=== PATIENT | female | born 1985 | race Caucasian/White ===

== ENCOUNTER → 2023-12-18 16:53 | Outpatient (BNVA) | payer SELFPAY | PROVIDERS: PCP Internal Medicine; Visit Provider Emergency Medicine | DX: R09.81 Nasal congestion | CPT/HCPCS: 87400 ==

== ENCOUNTER 2024-03-18 11:56 | Emergency (ER) | payer SELFPAY ==
--- NOTE | 2024-03-18 11:59 | XRR_ITS ---
PROCEDURE INFORMATION: Exam: XR Chest Exam date and time: 03/18/2024 12:19 PM Age: 38 years old Clinical indication: Angina pectoris; Patient HX: Chest pain with lt arm pain TECHNIQUE: Imaging protocol: Radiologic exam of the chest. Views: 1 view. COMPARISON: CR XR chest 1V [id number] 12/28/2017 9:59 PM FINDINGS: Lungs: Calcified granuloma in right lower lung is similar to previous study. No consolidation. Pleural spaces: Unremarkable. No pleural effusion. No pneumothorax. Heart/Mediastinum: Unremarkable. No cardiomegaly. Bones/joints: Unremarkable. XR/XR chest 1V portable [id number] IMPRESSION: No acute findings.
[2024-03-18 12:00] VITALS: BP 130/82; PULSE 87; RESP 18; TEMP 36.5; O2SAT 98
--- NOTE | 2024-03-18 12:03 | ECG_ITS ---
[facility] Test Date: 2024-03-18 Pat Name: Becky Bentley Department: Room: Gender: Female Senior Financial Analyst: : 1985 Requested By: Claus Velarde Order Number: [id number] Bryson MD: Shantell Brown M.D. Measurements Intervals [place] Rate: 83 P: 39 VA: 184 QRS: 7 QRSD: 79 T: 27 QT: 363 QTc: 428 Interpretive Statements SINUS RHYTHM WITH MARKED SINUS ARRHYTHMIA LOW QRS VOLTAGE IN PRECORDIAL LEADS [QRS DEFLECTION < 1.0 mV IN CHEST LEADS] No previous ECG available for comparison Electronically Signed On 03-18-2024 20:27:05 CDT by Shantell Brown M.D. [id number]
--- NOTE | 2024-03-18 12:05 | PC.NURSE ---
Pt on bedside cardiac rehabilitation specialist
--- NOTE | 2024-03-18 12:09 | ED_ITS ---
HPI - Chest Pain 2 General: Chief Complaint: Chest Pain Stated Complaint: chest pressure, left shoulder pain Time Seen by Provider: 03/18/24 12:00 Source: patient Mode of arrival: ambulatory Limitations: no limitations History of Present Illness: Patient reports starting at 10:54 AM she started having a centralized chest pain that radiates to her left shoulder and neck and goes down her left arm. Comes in waves. Worse with breathing. No history of this before. No history of reflux. Does not smoke. No previous heart history. Takes no medications on a daily basis. Review of Systems 2 General: Reports: 10 or more systems reviewed and unremarkable except in HPI and below Physical Exam 2 Const: COMMON NORMALS: no acute distress, average body habitus, patient oriented x3, healthy appearing, alert and well nourished GENERAL APPEARANCE: well kempt and well developed NUTRITIONAL APPEARANCE: obese HENMT: COMMON NORMALS: normocephalic, atraumatic, external ears normal and moist oral mucous membranes HEAD & SCALP: normocephalic and atraumatic E XTERNAL EAR: Yes external ears normal Eye: COMMON NORMALS: Equal, round and reactive pupils present, EOMs intact bilaterally and conjunctivae normal CONJUNCTIVA: Yes conjunctivae normal P UPIL: Yes Equal, round and reactive pupils present Neck/C-Spine: COMMON NORMALS: full ROM, no lymphadenopathy and supple Chest: CHEST: Yes Symmetrical chest wall rise and Yes tenderness sternum Resp: COMMON NORMALS: normal respiratory effort, No retractions, No use of accessory muscles and clear to auscultation bilaterally AUSCULTATION: clear to auscultation bilaterally Cardio: COMMON NORMALS: regular rate, regular rhythm, S1 normal heart sound present, S2 normal heart sound present, No gallops present (Cardio), No clicks present (Cardio), No murmurs present (Cardio) and No rub (Cardio) JUGULAR VENOUS DISTENTION: no JVD RATE: regular rate RHYTHM: regular rhythm H EART SOUNDS: S1 normal heart sound present, S2 normal heart sound present and no murmurs PERIPHERAL PULSES: other (Radial pulses 2+ and symmetric) GI: COMMON NORMALS: Soft to palpation, non-tender and no masses INSPECTION: No abdominal distension PALPATION: Yes Soft to palpation, No Guarding due to palpation present (GI) and No Rebound tenderness present : COMMON NORMALS: Yes no CVA tenderness BLADDER/KIDNEY EXAM: Yes no CVA tenderness Back/Pelvis: COMMON NORMALS: no CVA tenderness Extremity: COMMON NORMALS: normal to inspection, full ROM, capillary refill normal and no clubbing, cyanosis or edema Neuro: COMMON NORMALS: patient oriented x3 SENSORIUM/ORIENTATION: Yes alert Psych: APPEARANCE: Yes well kempt Skin: COMMON NORMALS: no rashes or lesions noted, no wounds, turgor normal and no jaundice GENERAL SKIN EXAM: no rashes or lesions noted and turgor normal Course 2 Reevaluation(s): Reevaluation #1: Toradol has not helped. Okay with trying GI cocktail. Labs that have resulted are unremarkable. Having to redraw some. Vitals are stable. Time: 13:04 Reevaluation #2: much improved. ready for discharge Time: 14:40 Vital Signs: Vital signs: Vital Signs Temperature 97.7 F 03/18/24 12:00 Pulse Rate 69 03/18/24 14:34 Respiratory Rate 14 03/18/24 14:34 Blood Pressure 91/49 03/18/24 14:34 Pulse Oximetry 96 03/18/24 14:34 Oxygen Delivery Me thod Room Air 03/18/24 14:34 MDM - Chest Pain Medical Decision Making chest pain appears non-anginal. Trop negative. EKG negative. Wells score of 0.0. Toradol reportedly did not help the pain. Noted the GI cocktail. However she is to have sternal tenderness. Will do a trial of morphine. However patient's chest pain appears to be not anginal we will likely discharge her with anti- inflammatories and advised follow-up with primary care. Medical Records I reviewed the patient's medical records. Lab Data I reviewed the patient's lab results. 03/18/24 13:19 03/18/24 12:15 Radiology Impressions Chest X-Ray 03/18/24 11:59 IMPRESSION: No acute findings. Laboratory Results WBC 6.53 10^3/uL (3.29-11.43) 03/18/24 13:19 Corrected WBC Cancelled 03/18/24 12:15 RBC 4.51 10^6/uL (3.85-5.65) 03/18/24 13:19 Hgb 13.70 g/dL (11.27-16.99) 03/18/24 13:19 Hct 40.7 % (36-47) 03/18/24 13:19 MCV 90.2 fl (85-98) 03/18/24 13:19 MCH 30.4 pg (27-33) 03/18/24 13:19 MCHC 33.7 g/dL (30-55) 03/18/24 13:19 RDW 12.7 % (12.1-15.1) 03/18/24 13:19 Plt Count 238 10^3/cmm (157-399) 03/18/24 13:19 MPV 10.1 fL (7.4-10.4) 03/18/24 13:19 Gran % Cancelled 03/18/24 12:15 Neut % (Auto) 55.6 % 03/18/24 13:19 Lymph % (Auto) 34.3 % 03/18/24 13:19 [place] % (Auto) 8.7 % 03/18/24 13:19 Eos % (Auto) 0.8 % 03/18/24 13:19 Baso % (Auto) 0.3 % 03/18/24 13:19 Neut # (Auto) 3.63 10^3/uL (1.8-7.7) 03/18/24 13:19 Lymph # (Auto) 2.2 10^3/uL (0.8-4.8) 03/18/24 13:19 [place] # (Auto) 0.6 10^3/uL (0.2-0.9) 03/18/24 13:19 Eos # (Auto) 0.1 10^3/uL (0.0-0.8) 03/18/24 13:19 Baso # (Auto) 0.0 10^3/uL (0.0-0.1) 03/18/24 13:19 Absolute Gran (auto) Cancelled 03/18/24 12:15 Nucleated RBC % (auto) 0 % 03/18/24 13:19 Nucleated RBCs # 0.0 /100WBC 03/18/24 13:19 Sodium 139 mmol/L (136-145) 03/18/24 12:15 Potassium 4.4 mmol/L (3.5-5.1) 03/18/24 12:15 Chloride 105 mmol/L (98-107) 03/18/24 12:15 Carbon Dioxide 23 mmol/L (22-29) 03/18/24 12:15 Anion Gap 15.4 (5-19) 03/18/24 12:15 BUN 12 mg/dL (6-20) 03/18/24 12:15 Creatinine 0.6 mg/dL (0.5-0.9) 03/18/24 12:15 GFR Calculation 113.1 mL/min (90-130) 03/18/24 12:15 Glucose 104 mg/dL (65-115) 03/18/24 12:15 Calculated Osmolality 288 mOsm/kg (285-295) 03/18/24 12:15 Calcium 9.5 mg/dL (8.5-10.5) 03/18/24 12:15 Total Bilirubin 0.7 mg/dL (0.15-1.2) 03/18/24 12:15 AST 36 U/L (0-32) H 03/18/24 12:15 ALT 54 U/L (0-33) H 03/18/24 12:15 Alkaline Phosphatase 160 U/L (35-105) H 03/18/24 12:15 Troponin T Baseline < 6 ng/L (0-10) 03/18/24 12:15 Total Protein 7.4 g/dL (6.6-8.7) 03/18/24 12:15 Albumin 4.2 g/dL (3.5-5.2) 03/18/24 12:15 Globulin 3.2 g/dL (1.3-4.6) 03/18/24 12:15 Lipase 35 U/L (13-60) 03/18/24 12:15 All radiology interpretation(s) finalized by discharge ED provider radiology interpretation(s): Chest x-ray personally reviewed and I see no acute abnormality EKG Data EKG 1: I personally reviewed and interpreted this EKG as follows: EKG interpretation date: 03/18/24 EKG interpretation time: 12:03 Prior EKG tracings: not available for review Interpretation: Sinus rate of [address] elevation or depression. No signs of [place] or Q waves. Intervals are unremarkable/wnl Discharge Plan Discharge Patient Disposition: Home Clinical Impression: Acute pleurisy without pleural effusion, Costalchondritis Condition: Stable Prescriptions: New prednisone 20 mg tablet 40 mg PO DAILY 3 Days Qty: 6 0RF naproxen sodium [Anaprox DS] 550 mg tablet 550 mg PO BID 10 Days Qty: 20 0RF Discharge Orders: Discharge ED (Routine); Ordered 03/18/24 Ordered By: Geovanny Rojo Referrals: Pio Jones MD [Primary Care Provider] - Discharge Diet: Usual diet Discharge Activity: Resume usual activity Patient Instructions: Pleurisy (ED) Coding Level of Care Code ED Choir Teacher for Ciarra Hopson
[2024-03-18] MEDS: ketorolac 30 mg/mL INJ 15 MG IVP (12:32)
--- NOTE | 2024-03-18 12:32 | PC.PHAR ---
PT STATES TAKES NO MEDICATIONS CURRENTLY.
[2024-03-18 12:34] VITALS: BP 116/72; PULSE 76; RESP 19; O2SAT 95
[2024-03-18 12:54] LABS: Albumin Level 4.2 g/dL (3.5-5.2); Alkaline Phosphatase 160 U/L (35-105); Blood Urea Nitrogen 12 mg/dL (6-20); Calcium 9.5 mg/dL (8.5-10.5); Carbon Dioxide 23 mmol/L (22-29); Chloride 105 mmol/L (98-107); Creatinine Clr Calc Pharmacy 170.2273; Globulin 3.2 g/dL (1.3-4.6); Glomerular Filtration Rate 113.1 mL/min (90-130); Glucose 104 mg/dL (65-115); Lipase 35 U/L (13-60); Osmolality Calculated 288 mOsm/kg (285-295); Sodium 139 mmol/L (136-145); Total Bilirubin 0.7 mg/dL (0.15-1.2); Total Protein 7.4 g/dL (6.6-8.7); Troponin(5th) Baseline < 6 ng/L (0-10)
--- NOTE | 2024-03-18 13:03 | PC.NURSE ---
Pt states toradol has not helped with the pain, pt chest tender to palpation. Dr Rojo to bedside to assess patient
[2024-03-18 13:16] LABS: Alanine Aminotransferase 54 U/L (0-33); Anion Gap 15.4 (5-19); Aspartate Amino Transferase 36 U/L (0-32); Potassium 4.4 mmol/L (3.5-5.1)
[2024-03-18 13:23] LABS: Basophils % 0.3 %; Eosinophils # 0.1 10^3/uL (0.0-0.8); Eosinophils % 0.8 %; Hematocrit 40.7 % (36-47); Lymphocytes # 2.2 10^3/uL (0.8-4.8); Lymphocytes % 34.3 %; Mean Corpuscular HGB Conc 33.7 g/dL (30-55); Mean Corpuscular Hemoglobin 30.4 pg (27-33); Mean Corpuscular Volume 90.2 fl (85-98); Mean Platelet Volume 10.1 fL (7.4-10.4); Monocytes # 0.6 10^3/uL (0.2-0.9); Monocytes % 8.7 %; Neutrophils # 3.63 10^3/uL (1.8-7.7); Neutrophils % 55.6 %; Nucleated Red Blood Cells % 0 %; Platelet Count 238 10^3/cmm (157-399); Red Blood Count 4.51 10^6/uL (3.85-5.65); Red Cell Distribution Width 12.7 % (12.1-15.1); White Blood Count 6.53 10^3/uL (3.29-11.43)
[2024-03-18] MEDS: lidocaine 2% viscous 15 ML, aluminum-mag hydrox-simethicon 30 ML, sucralfate oral liq 1 GM PO (13:23)
--- NOTE | 2024-03-18 13:25 | PC.NURSE ---
Pt reports some pink in stool after a BM yesterday
--- NOTE | 2024-03-18 13:45 | PC.NURSE ---
Pt reports no change in pain after GI cocktail
[2024-03-18] MEDS: ondansetron 2 mg/ML SDV 2 mL 4 MG IVP (13:50)
[2024-03-18] MEDS: morphine 4 mg/mL SDV 1 mL IVP (13:50)
[2024-03-18 14:34] VITALS: BP 91/49; PULSE 69; RESP 14; O2SAT 96
[2024-03-18 15:35] VITALS: BP 109/69; PULSE 96; RESP 17; O2SAT 96
[2024-03-18 16:23] LABS: Troponin 5 2HR Delta 0.00001 ABS# (0-10)
== END 2024-03-18 15:35 | disposition home or self-care (01) ==
PROVIDERS: Emergency Medicine; Emergency Provider Emergency Medicine; PCP Internal Medicine
DX: J90 Pleural effusion, not elsewhere classified (principal); M94.0 Chondrocostal junction syndrome [Tietze]
CPT/HCPCS: 71045; 80053; 83690; 84484; 85025; 93005; 96374; 96375; 99285; J1885; J2270; J2405